=== PATIENT | female | born 2005 | race Caucasian/White ===

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

== ENCOUNTER 2024-11-07 23:56 | Emergency (ER) | payer BC, SELFPAY ==
[2024-11-07 23:57] VITALS: BP 114/78
[2024-11-08 01:46] VITALS: BP 100/69; BMI 22.8
--- NOTE | 2024-11-08 02:00 | ED.GENMED ---
History of Present Illness
General
Chief Complaint: Head Injury
Source: patient
Exam Limitations: none
Time Seen by Provider: 11/08/24 01:52
History of Present Illness
History of Present Illness:
See MDM
Past History
Past History
ED Past Medical History: Arrthythmia (Atrial fib/flutter) and Other ([place])
ED Past Surgical History: Appendectomy and Cardiac ([place])
Social History
Tobacco: Non-smoker
Alcohol: None
Drug: None
Personal: Single
Living: with family
Employment: Employed
Phy Exam
Physical Exam
Physical Exam:
See MDM
Course
Vital Signs
Initial and Last Documented VS:
Initial Vital Signs
Temp Pulse Resp BP Pulse Ox
98.1 F 70 18 114/78 98
11/07/24 23:57 11/07/24 23:57 11/07/24 23:57 11/07/24 23:57 11/07/24 23:57
Last Documented Vital Signs
Temp Pulse Resp BP Pulse Ox
98.1 F 70 18 100/69 95
11/07/24 23:57 11/07/24 23:57 11/07/24 23:57 11/08/24 01:46 11/08/24 01:47
MDM/Problems Addressed
Differential Diagnosis Includes:
Note:
CHIEF COMPLAINT(S)
Head trauma after an object fell on the head.
HISTORY OF PRESENT ILLNESS
The patient is a 19-year-old female who presented following a head injury sustained earlier today at 10 AM. She reports that a pole fell on her head while she was at work. She continued working afterwards but noted that lying down seemed to worsen
her symptoms. She denies any loss of consciousness or vomiting. The patient has experienced increased sensitivity to light, describing discomfort while in dark environments, suggesting some photophobia. She denies any significant medical history.
After the incident, she was concerned about possible intracranial bleeding but was reassured that this is unlikely given her age and lack of severe symptoms such as persistent headache with nausea or visual disturbances. Assessment raised suspicion
of a mild concussion, based on the mechanism of injury and her symptoms.
PHYSICAL EXAM
General: Well appearing and non-toxic
HEENT: protecting airway. No head trauma noted. EOMI. Pupils equal reactive
Neck: supple
CV: No evidence of cyanosis
Resp: No accessory muscle use
Abd: Non-distended
Extremities: No deformities
Neuro: alert
Psych: Normal affect
Skin: Intact.
PROBLEM LIST
Acute:
- Mild concussion.
- Head trauma.
PLAN
- Rest is advised as the primary treatment, particularly within the first 48 hours post-injury.
- Minimize activities that require rapid eye movement, such as reading or extended phone use.
- Patient advised to monitor for any worsening symptoms such as severe headache, persistent vomiting, or visual disturbances.
- A work note will be provided to allow the patient to return to work on .
- No imaging studies required at this time, as clinical evaluation suffices to dismiss severe intracranial injury concerns.
DIFFERENTIAL DIAGNOSIS
The Differential Diagnosis includes, in no particular order and is not limited to:
1. Concussion
2. Subdural hematoma
3. Epidural hematoma
4. Skull fracture
5. Post-traumatic headache
6. Migraine triggered by trauma
7. Cervical spine injury
8. Parietal bone contusion
9. Intracranial hemorrhage
10. Post-concussion syndrome
Disposition:
SUMMARY OF ENCOUNTER
The patient, a 19-year-old female, presented to the emergency department following a head injury where a pole fell on her head. While she continued working after the incident, her symptoms worsened when lying down, suggesting mild concussion
symptoms such as photophobia. An examination noted no visible bleeding and her eye movements did not exacerbate symptoms. We discussed low utility of CT head and patient agrees.
DISPOSITION
Discharge.
ASSESSMENT
Mild concussion with head trauma.
PLAN
The patient is advised to rest for the first 48 hours post-injury. Activities that require rapid eye movement should be minimized, such as reading or using a phone extensively. She should monitor for severe headaches, persistent vomiting, or visual
disturbances. A work note will be provided for her to return to work on .
PATIENT EDUCATION AND COUNSELING
The patient was counseled on the nature of mild concussions and reassured regarding her prognosis. She was instructed on strict return precautions, should symptoms worsen or if uncontrolled vomiting occurs.
FOLLOW-UP INSTRUCTIONS
The patient is advised to follow up with her primary care physician if symptoms do not improve or worsen within the next few days.
MEDICAL DECISION MAKING
-Complexity of Data Reviewed:
The differential diagnosis includes: concussion, subdural hematoma, epidural hematoma, skull fracture, post-traumatic headache, migraine triggered by trauma, cervical spine injury, parietal bone contusion, intracranial hemorrhage, post-concussion
syndrome.
.
-Risk:
Consideration of Admission/Observation: Escalation of care was considered, given the complexity and risk of the patients head injury. However, the patient is deemed safe for outpatient management with close follow-up. Work-up is reassuring, showing
no acute life-threatening processes, and the patients symptoms are well controlled upon reevaluation. Vitals are stable, and the patient agrees with discharge and is reliable for follow-up.
DIAGNOSIS
1. Mild concussion (ICD-10: S06.0X0A)
2. Head trauma (ICD-10: S09.90XA)
*Pulse Oximetry
SaO2: 95
Oxygen Mode of Delivery: Room air
Patient hypoxic: no
*Critical Care Note
Total Time (30-74mins, 75-104mins- exclusive of procedures): Not Applicable
ED Attending Note
-
Portions of this chart may have been created with voice recognition software.� Occasional wrong word or��sound alike� substitutions may have occurred due to the inherent limitations of voice recognition software.
Discharge Plan
Departure
Patient Disposition: Home (Routine Discharge)
Date of Disposition: 11/08/24
Time of Disposition: 02:02
Patient with high blood pressure during this ER visit?: No
Discharge Problem:
Minor head injury
Instructions: Head Injury in Adults (DC)
Prescriptions:
No Action
multivitamin
1 tab PO DAILY
amoxicillin 500 mg capsule
500 mg PO BID 10 Days Qty: 20 0RF
methylprednisolone [Medrol (Ken)] 4 mg tablets,dose pack
See Rx Instructions .ROUTE .COMPLEX Qty: 21 0RF
Rx Instructions:
for 6 days
hydrocodone-acetaminophen 5-325 mg tablet
1 tab PO HS PRN (Reason: Pain) Qty: 3 0RF
Stand Alone Forms: Return to Work
Activity Restrictions/Additional Instructions:
Please return for any worsening symptoms.
You may return at any time if you have further concerns.
Please follow up with your doctor at the first available appointment, preferably this week.
Thank you for choosing [facility].
Interventions
Interventions:
*Risk Screen - Suicide Last Done: 11/07/24 23:57
*General Assessment Last Done: 11/08/24 01:47
*Neglect/Abuse Screening Last Done: 11/07/24 23:57
*ED- Fall Risk Assessment Last Done: 11/08/24 01:47
*ED COVID-19 Vaccine History Last Done: 11/08/24 01:47
ED- Neurological Assessment Last Done: 11/08/24 01:56
ED-Skin Assessment Last Done: 11/08/24 01:56
Discharge Date and Time
Print Language: CITIZ[place]
== END 2024-11-08 02:23 | disposition home or self-care (01) ==
LOC: EMR 23:56
PROVIDERS: EMERGENCY PHYSICIAN Student in an Organized Health Care Education/Training Program; FAMILY PHYSICIAN Family Medicine
DX: S09.90XA Unspecified injury of head, initial encounter (principal); S06.0X0A Concussion without loss of consciousness, initial encounter; W20.8XXA Other cause of strike by thrown, projected or falling object, initial encounter; Y93.89 Activity, other specified; Y92.89 Other specified places as the place of occurrence of the external cause; Y99.0 Civilian activity done for income or pay; I48.91 Unspecified atrial fibrillation; I48.92 Unspecified atrial flutter
CPT/HCPCS: 99282